=== PATIENT | female | born 1960 | race Caucasian/White ===

== ENCOUNTER 2021-06-11 15:18 | Emergency (ER) | payer OTHER ==
[~2021-06-11 15:18] MED LIST: PRILOSEC20 MG PO
[2021-06-11] MEDS ORDERED: IBUPROFEN800 MG PO (16:20)
== END 2021-06-11 16:47 | disposition home or self-care (01) ==
LOC: FER 15:18
DX: S62.101A Fracture of unspecified carpal bone, right wrist, initial encounter for closed fracture (principal); W01.0XXA Fall on same level from slipping, tripping and stumbling without subsequent striking against object, initial encounter; Y92.009 Unspecified place in unspecified non-institutional (private) residence as the place of occurrence of the external cause
CPT/HCPCS: 73110